=== PATIENT | female | born 1950 | race Hispanic/Latino ===

== ENCOUNTER → 2017-05-09 | Outpatient (CLI) | payer MEDICARE ==
[~2017-05-09] MED LIST: ASPI-1197 PO; CAND8TAB PO; GABA-529 PO; ICOS1CAP PO; INSU100I15 SQ; INSU100V9 SQ; INSU3INS3 SQ; METO-391 PO; OLME5TAB PO; OMEG1CAP45 PO; PREM625 PO; ROSU5TAB PO; UBID100C10 PO; VITA1CAP85 PO
== END | disposition home or self-care (01) ==
LOC: RAH 12:26
PROVIDERS: ATTEND Orthopaedic Surgery
DX: M75.101 Unspecified rotator cuff tear or rupture of right shoulder, not specified as traumatic (principal); M65.811 Other synovitis and tenosynovitis, right shoulder
CPT/HCPCS: 73221

== ENCOUNTER 2017-06-16 15:00 | Inpatient (IN) | payer MEDICARE ==
[~2017-06-16] VITALS: Ht 172.7 cm; Wt 74.6 kg
[2017-06-16 14:20] VITALS: BP 137/74
[2017-06-16 14:58] LABS: BASOPHILS % (AUTO) 0.8 % (0.0-5.0); EOSINOPHILS % (AUTO) 3.4 % (0.0-8.0); HEMATOCRIT 39.3 % (36-48); LYMPHOCYTES % (AUTO) 36.5 % (21.0-51.0); MEAN CORPUSCULAR HGB CONC 34.3 g/dL (32.0-36.0); MEAN CORPUSCULAR VOLUME 84.6 fL (79-99); MONOCYTES % (AUTO) 6.7 % (3.0-13.0); NEUTROPHILS % (AUTO) 52.6 % (40.0-77.0); PLATELET COUNT (AUTO) 281 K/uL (130-400); RED BLOOD CELL COUNT(AUTO) 4.65 MIL/uL (4.00-5.50); RED CELL DISTRIBUTION WIDTH 14.5 % (11.0-15.5); WHITE BLOOD COUNT (AUTO) 10.4 K/uL (4.8-10.8)
[2017-06-16 14:59] LABS: APPEARANCE,URINE Clear (CLEAR); BILIRUBIN,URINE Negative (NEGATIVE); COLOR,URINE Yellow (YELLOW); GLUCOSE, URINE (UA) Negative (NEGATIVE); KETONES,URINE Negative (NEGATIVE); LEUKOCYTE ESTERASE ,URINE Trace (NEGATIVE); NITRATE,URINE Negative (NEGATIVE); OCCULT BLOOD,URINE Negative (NEGATIVE); PROTEIN,URINE Negative (NEGATIVE); UROBILINOGEN,URINE 0.2 mg/dL (0.2-1.0)
[~2017-06-16 15:00] MED LIST changes: -ASPI-1197 PO; -CAND8TAB PO; -GABA-529 PO; -ICOS1CAP PO; -INSU100I15 SQ; -INSU3INS3 SQ; -OLME5TAB PO; -OMEG1CAP45 PO; -ROSU5TAB PO; -UBID100C10 PO
[2017-06-16 15:10] LABS: INR 1.03 (0.85-1.15); PARTIAL THROMBOPLASTIN TIME 27.3 SEC (26.3-35.5); PROTHROMBIN TIME 10.8 SEC (9.6-11.6)
[2017-06-16] MEDS ORDERED: INSU3INS3 SQ (15:11)
[2017-06-16] MEDS ORDERED: INSU100I15 SQ (15:11)
[2017-06-16] MEDS ORDERED: OMEG1CAP45 PO (15:11)
[2017-06-16] MEDS ORDERED: UBID100C10 PO (15:11)
[2017-06-16] MEDS ORDERED: GABA-529 PO (15:12)
[2017-06-16] MEDS ORDERED: OLME5TAB PO (15:12)
[2017-06-16 15:25] LABS: CREATININE 0.8 mg/dL (0.5-1.5)
[2017-06-16 15:25] LABS: BACTERIA,URINE None Seen /HPF (None Seen); RBC,URINE None Seen /HPF (0-1); SQUAMOUS EPITHELIAL CELL,UR 0-2 /LPF (0-2); WBC,URINE 0-1 /HPF (0-1)
[2017-06-19] VITALS (26 sets, daily range): BP systolic 107–160; BP diastolic 58–89
[2017-06-19] MEDS ORDERED: SODIUM CHLORIDE 0.9% 1000ML 1,000 ML IV ONE (07:38)
[2017-06-19] MEDS: CEFAZOLIN SODIUM 1 GM VIAL IVP ONE ×2 (07:56→10:15)
[2017-06-19] MEDS ORDERED: ROSU5TAB PO (08:00)
[2017-06-19] MEDS ORDERED: WATER FOR INJECTION,STERILE 20 ML VIAL IJ ONE (08:00)
[2017-06-19] MEDS ORDERED: OXYCODONE HCL 10 MG TAB.SR.12H PO ONE (08:28)
[2017-06-19] MEDS ORDERED: KETOROLAC TROMETHAMINE 15MG/ML ONE (08:28)
[2017-06-19] MEDS ORDERED: ACETAMINOPHEN EXTRA STRENGTH 500 MG TABLET ONE (08:28)
[2017-06-19] MEDS ORDERED: METOCLOPRAMIDE 10 MG/2 ML VIAL ONE ×2 (08:45→11:02)
[2017-06-19] MEDS ORDERED: CEFAZOLIN SODIUM 1 GM VIAL ONE (09:17)
[2017-06-19] MEDS ORDERED: TRANEXAMIC ACID 1000MG/10ML IV ONE (09:18)
[2017-06-19] MEDS ORDERED: ONDANSETRON HCL 4 MG/2 ML VIAL ONE ×3 (09:52→13:16)
[2017-06-19] MEDS ORDERED: MIDAZOLAM HCL 1 MG/ML 2ML VIAL ONE (09:52)
[2017-06-19] MEDS ORDERED: DEXAMETHASONE SOD PHOSPHATE 10MG/ML 1ML VIAL ONE ×2 (09:52→11:02)
[2017-06-19] MEDS ORDERED: GLYCOPYRROLATE 0.2 MG/ML 5 ML VIAL ONE ×2 (09:52→11:03)
[2017-06-19] MEDS ORDERED: PROPOFOL 10 MG/ML 20ML VIAL IV ONE (09:52)
[2017-06-19] MEDS ORDERED: SUCCINYLCHOLINE 200MG/10ML SYR ONE ×2 (09:52→11:02)
[2017-06-19] MEDS ORDERED: LIDOCAINE PF 2% 5ML ABBOJECT ONE (09:52)
[2017-06-19] MEDS ORDERED: FENTANYL CITRATE PF 50 MCG/1 ML 2ML VIAL ONE ×3 (09:52→11:16)
[2017-06-19] MEDS ORDERED: THROMBIN-JMI 5000 UNIT/VIAL TP ONE (10:43)
[2017-06-19] MEDS ORDERED: BUPIVACAINE/EPI/PF 0.25% 30ML VIAL IJ ONE (10:43)
[2017-06-19] MEDS ORDERED: EPHEDRINE SULFATE 50 MG/ML AMPULE ONE (11:00)
[2017-06-19] MEDS ORDERED: LIDOCAINE HCL 4% LTA SOL 4 ML VIAL ONE (11:02)
[2017-06-19] MEDS ORDERED: ROCURONIUM BROMIDE 10MG/1ML 5ML VL ONE (11:02)
[2017-06-19] MEDS ORDERED: LIDOCAINE HCL 2% JELLY 5 ML ONE (11:03)
[2017-06-19] MEDS ORDERED: MEPERIDINE-PF 50 MG/ML SYG ONE ×2 (13:01→14:08)
[2017-06-19] MEDS ORDERED: POTASSIUM CHLORIDE 20MEQ/100ML 100 ML IV PRN (14:15)
[2017-06-19] MEDS ORDERED: LIDOCAINE HCL-MPF 1% 2ML VIAL IVP PRN (14:15)
[2017-06-19] MEDS ORDERED: TRAMADOL HCL 50 MG TABLET PO PRN (14:15)
[2017-06-19] MEDS ORDERED: DIPHENHYDRAMINE HCL 25 MG CAPSULE PO PRN (14:15)
[2017-06-19] MEDS ORDERED: POTASSIUM CHLORIDE 20 MEQ ERTAB PO PRN (14:15)
[2017-06-19] MEDS ORDERED: FERROUS FUMARATE 324 MG TABLET PO PRN (14:15)
[2017-06-19] MEDS ORDERED: TEMAZEPAM 15 MG CAPSULE PO PRN (14:15)
[2017-06-19] MEDS ORDERED: POTASSIUM CHLORIDE 10% ELIXIR 20 MEQ/15 ML UDCUP PO PRN (14:15)
[2017-06-19] MEDS ORDERED: CALCIUM CARBONATE 500 MG TABLET PO PRN (14:15)
[2017-06-19] MEDS ORDERED: PROMETHAZINE HCL 25 MG/ML 1ML AMPULE IM PRN (14:15)
[2017-06-19] MEDS ORDERED: OXYCODONE HCL 5 MG TAB PO PRN (14:15)
[2017-06-19] MEDS ORDERED: DiphenhydrAMINE HCL 50 MG/ML VIAL IVP PRN (14:15)
[2017-06-19] MEDS: SODIUM CHLORIDE 0.9% 1000ML 1,000 ML IV SCH (14:57)
[2017-06-19] MEDS ORDERED: GLUCAGON 1MG KIT 1 MG ML IM PRN (15:00)
[2017-06-19] MEDS ORDERED: DEXTROSE 50%-WATER 50 ML DISP.SYRIN IV PRN (15:00)
[2017-06-19] MEDS: ACETAMINOPHEN 325 MG TAB PO SCH ×2 (15:15→21:26)
[2017-06-19] MEDS: ROSUVASTATIN CALCIUM 5 MG PO SCH ×2 (15:15→21:00)
[2017-06-19] MEDS: KETOROLAC TROMETHAMINE 15MG/ML IV PRN (15:21)
[2017-06-19] MEDS ORDERED: INSULIN HUMULIN R 100 UNIT/ML 3ML SQ SCH (16:30)
[2017-06-19] MEDS ORDERED: INSULIN LISPRO 100 UNIT/ML 3ML SQ ONE ×2 (16:53→21:02)
[2017-06-19] MEDS: HUMALOG PO SS1 SQ SCH ×2 (17:01→21:28)
[2017-06-19] MEDS: OXYCODONE HCL 5 MG TAB PO PRN ×2 (17:43→21:46)
[2017-06-19] MEDS ORDERED: CEFAZOLIN 2GM / 50 ML 50 ML IV SCH (19:15)
[2017-06-19] MEDS: CRESTOR 5 MG PO SCH (21:00)
[2017-06-19] MEDS ORDERED: ESTROGENS,CONJUGATED 0.625 MG TAB PO SCH (21:00)
[2017-06-19] MEDS: ESTROGENS,CONJUGATED 0.625 MG TAB PO SCH (21:00)
[2017-06-19] MEDS: METOPROLOL TARTRATE 25 MG TAB PO SCH ×2 (21:00→21:25)
[2017-06-19] MEDS: CEFAZOLIN SODIUM 1 GM VIAL IVP SCH (21:17)
[2017-06-19] MEDS: GABAPENTIN 100 MG CAPSULE PO SCH (21:25)
[2017-06-19] MEDS: FAMOTIDINE 20MG TAB 20 MG TAB PO SCH (21:25)
[2017-06-20] VITALS: BP 132/71
[2017-06-20] MEDS: SODIUM CHLORIDE 0.9% 1000ML 1,000 ML IV SCH ×2 (00:42→10:08)
[2017-06-20] MEDS: CEFAZOLIN SODIUM 1 GM VIAL IVP SCH (03:10)
[2017-06-20] MEDS: ACETAMINOPHEN 325 MG TAB PO SCH ×4 (03:11→20:14)
[2017-06-20 04:00] VITALS: BP 135/70
[2017-06-20 04:46] LABS: HEMATOCRIT 27.8 % (36-48); MEAN CORPUSCULAR HEMOGLOBIN 28.8 pg (27.0-33.0); MEAN CORPUSCULAR HGB CONC 34.2 g/dL (32.0-36.0); MEAN CORPUSCULAR VOLUME 84.3 fL (79-99); PLATELET COUNT (AUTO) 208 K/uL (130-400); RED BLOOD CELL COUNT(AUTO) 3.29 MIL/uL (4.00-5.50); RED CELL DISTRIBUTION WIDTH 14.4 % (11.0-15.5)
[2017-06-20] MEDS: OXYCODONE HCL 5 MG TAB PO PRN ×3 (04:58→13:24)
[2017-06-20 05:06] LABS: CREATININE 0.8 mg/dL (0.5-1.5)
[2017-06-20] MEDS: INSULIN GLARGINE 100 UNITS/ML 10 ML VIAL SQ SCH ×3 (06:59→07:32)
[2017-06-20] MEDS: METOPROLOL TARTRATE 25 MG TAB PO SCH ×4 (07:02→20:11)
[2017-06-20] MEDS: LOSARTAN 50 MG TABLET PO SCH (07:02)
[2017-06-20] MEDS: ESTROGENS,CONJUGATED 0.625 MG TAB PO SCH ×2 (07:02→20:12)
[2017-06-20] MEDS: ROSUVASTATIN CALCIUM 5 MG PO SCH (07:03)
[2017-06-20] MEDS ORDERED: INSULIN LISPRO 100 UNIT/ML 3ML SQ ONE (07:16)
[2017-06-20] MEDS: HUMALOG PO SS1 SQ SCH ×4 (07:26→21:13)
[2017-06-20 08:19] VITALS: BP 112/64
[2017-06-20] MEDS: APIXABAN 2.5 MG TABLET PO SCH ×2 (08:30→20:11)
[2017-06-20] MEDS: POLYETHYLENE GLYCOL 3350 17 GM POWD.PACK PO SCH (08:30)
[2017-06-20] MEDS: FAMOTIDINE 20MG TAB 20 MG TAB PO SCH ×2 (08:31→20:12)
[2017-06-20] MEDS: GABAPENTIN 100 MG CAPSULE PO SCH ×2 (08:31→20:12)
[2017-06-20] MEDS: KETOROLAC TROMETHAMINE 15MG/ML IV PRN ×2 (08:32→20:08)
[2017-06-20] MEDS ORDERED: LOSARTAN 50 MG TABLET PO SCH (09:00)
[2017-06-20 12:00] VITALS: BP 137/59
[2017-06-20] MEDS: PSYLLIUM SEED 1 EACH PACKET PO SCH (12:11)
[2017-06-20 16:42] VITALS: BP 146/71
[2017-06-20 20:00] VITALS: BP 142/65
[2017-06-20] MEDS: CRESTOR 5 MG PO SCH (20:15)
[2017-06-21] VITALS (9 sets, daily range): BP systolic 125–150; BP diastolic 54–75
[2017-06-21] MEDS: ACETAMINOPHEN 325 MG TAB PO SCH ×3 (03:29→14:34)
[2017-06-21 05:02] LABS: HEMATOCRIT 24.6 % (36-48); MEAN CORPUSCULAR HEMOGLOBIN 28.8 pg (27.0-33.0); MEAN CORPUSCULAR HGB CONC 34.3 g/dL (32.0-36.0); MEAN CORPUSCULAR VOLUME 83.9 fL (79-99); PLATELET COUNT (AUTO) 190 K/uL (130-400); RED BLOOD CELL COUNT(AUTO) 2.94 MIL/uL (4.00-5.50); RED CELL DISTRIBUTION WIDTH 14.3 % (11.0-15.5); WHITE BLOOD COUNT (AUTO) 7.9 K/uL (4.8-10.8)
[2017-06-21 05:09] LABS: CREATININE 0.8 mg/dL (0.5-1.5); POTASSIUM 4.1 mmol/L (3.5-5.1)
[2017-06-21] MEDS: KETOROLAC TROMETHAMINE 15MG/ML IV PRN ×3 (07:48→20:43)
[2017-06-21] MEDS: INSULIN GLARGINE 100 UNITS/ML 10 ML VIAL SQ SCH (07:53)
[2017-06-21] MEDS: HUMALOG PO SS1 SQ SCH ×4 (07:55→21:30)
[2017-06-21] MEDS: APIXABAN 2.5 MG TABLET PO SCH ×2 (08:34→20:47)
[2017-06-21] MEDS: GABAPENTIN 100 MG CAPSULE PO SCH ×2 (08:34→20:47)
[2017-06-21] MEDS: METOPROLOL TARTRATE 25 MG TAB PO SCH (08:35)
[2017-06-21] MEDS: LOSARTAN 50 MG TABLET PO SCH (08:35)
[2017-06-21] MEDS: FAMOTIDINE 20MG TAB 20 MG TAB PO SCH ×2 (08:35→20:47)
[2017-06-21] MEDS: POLYETHYLENE GLYCOL 3350 17 GM POWD.PACK PO SCH (09:27)
[2017-06-21] MEDS ORDERED: BISACODYL 5 MG TABLET.DR PO ONE (12:07)
[2017-06-21] MEDS: PSYLLIUM SEED 1 EACH PACKET PO SCH (12:14)
[2017-06-21] MEDS ORDERED: BISACODYL 5 MG TABLET.DR PO PRN (14:15)
[2017-06-21] MEDS ORDERED: HYDROCODONE/ACETAMINOPHEN 5/325 MG TAB PO PRN (17:45)
[2017-06-21] MEDS: ESTROGENS,CONJUGATED 0.625 MG TAB PO SCH (20:47)
[2017-06-21] MEDS: CRESTOR 5 MG PO SCH (20:59)
[2017-06-22 00:09] VITALS: BP 134/65
[2017-06-22] MEDS: KETOROLAC TROMETHAMINE 15MG/ML IV PRN ×2 (04:22→14:20)
[2017-06-22 05:04] VITALS: BP 139/66
[2017-06-22 05:31] LABS: MEAN CORPUSCULAR HEMOGLOBIN 29.1 pg (27.0-33.0); MEAN CORPUSCULAR HGB CONC 34.7 g/dL (32.0-36.0); MEAN CORPUSCULAR VOLUME 83.9 fL (79-99); PLATELET COUNT (AUTO) 212 K/uL (130-400); RED BLOOD CELL COUNT(AUTO) 2.86 MIL/uL (4.00-5.50); WHITE BLOOD COUNT (AUTO) 8.9 K/uL (4.8-10.8)
[2017-06-22 05:47] LABS: CREATININE 0.7 mg/dL (0.5-1.5); POTASSIUM 4.2 mmol/L (3.5-5.1)
[2017-06-22] MEDS: INSULIN GLARGINE 100 UNITS/ML 10 ML VIAL SQ SCH (06:40)
[2017-06-22] MEDS: HUMALOG PO SS1 SQ SCH ×2 (06:41→12:35)
[2017-06-22 07:55] VITALS: BP 123/85
[2017-06-22] MEDS: HYDROCODONE/ACETAMINOPHEN 5/325 MG TAB PO PRN ×2 (08:29→12:33)
[2017-06-22] MEDS: GABAPENTIN 100 MG CAPSULE PO SCH (08:29)
[2017-06-22] MEDS: FAMOTIDINE 20MG TAB 20 MG TAB PO SCH (08:29)
[2017-06-22] MEDS: APIXABAN 2.5 MG TABLET PO SCH (08:29)
[2017-06-22] MEDS: POLYETHYLENE GLYCOL 3350 17 GM POWD.PACK PO SCH (08:29)
[2017-06-22] MEDS: PSYLLIUM SEED 1 EACH PACKET PO SCH ×2 (12:00→12:33)
[2017-06-22] MEDS ORDERED: BISACODYL 10 MG SUPP.RECT RC PRN (14:15)
== END 2017-06-22 17:00 | DRG 470 ==
LOC: DAHIP 06-19 07:03 → 4AH 06-19 13:49
PROVIDERS: ADMIT Orthopaedic Surgery; ATTEND Orthopaedic Surgery
PROC: 0SRC0J9 Replacement of Right Knee Joint with Synthetic Substitute, Cemented, Open Approach (ICD-10-PCS; principal; 2017-06-19 09:48)
DX: M17.11 Unilateral primary osteoarthritis, right knee (principal); I95.9 Hypotension, unspecified; E11.65 Type 2 diabetes mellitus with hyperglycemia; E78.5 Hyperlipidemia, unspecified; G89.29 Other chronic pain; R00.0 Tachycardia, unspecified; I10 Essential (primary) hypertension; I25.10 Atherosclerotic heart disease of native coronary artery without angina pectoris; Z79.4 Long term (current) use of insulin; Z90.710 Acquired absence of both cervix and uterus; Z90.49 Acquired absence of other specified parts of digestive tract; Z88.8 Allergy status to other drugs, medicaments and biological substances; Z98.1 Arthrodesis status; Z80.9 Family history of malignant neoplasm, unspecified; Z28.21 Immunization not carried out because of patient refusal
CPT/HCPCS: 36415; 80048; 81001; 82948; 85025; 85027; 85610; 85730; 88305; 88311; 93005; 96374; 96375; A4218; C1713; J0330; J0690; J1100; J1815; J1885; J2001; J2175; J2250; J2405; J2704; J2765; J3010; J3490; J7030

== ENCOUNTER → 2018-03-26 | Outpatient (CLI) | payer MEDICARE ==
[~2018-03-26] MED LIST changes: +GABA-529 PO; +INSU100I15 SQ; -INSU100V9 SQ; +INSU3INS3 SQ; +OLME5TAB PO; +OMEG1CAP45 PO; +ROSU5TAB PO; +UBID100C10 PO
== END | disposition home or self-care (01) ==
LOC: OIH 10:49
PROVIDERS: ATTEND Neurological Surgery
DX: M47.892 Other spondylosis, cervical region (principal); M43.22 Fusion of spine, cervical region
CPT/HCPCS: 72040